=== PATIENT | male | born 1950 | race Caucasian/White ===

== ENCOUNTER 2016-06-01 18:39 | Emergency (ER) | payer OTHER ==
[~2016-06-01] VITALS: Ht 175.3 cm; Wt 104.0 kg
[2016-06-01] MEDS ORDERED: ASPIRIN EC81 MG PO (19:08)
[2016-06-01] MEDS ORDERED: ZYRTEC10 M3 PO (19:08)
[2016-06-01] MEDS ORDERED: METFORMIN500 MG PO (19:09)
[2016-06-01] MEDS ORDERED: HYDROCHLORO25 MG/TAB PO (19:09)
[2016-06-01] MEDS ORDERED: LISINOPRIL20 MG PO (19:09)
[2016-06-01] MEDS ORDERED: KLOR-CON SPRIN10 MEQ PO (19:10)
[2016-06-01] MEDS ORDERED: METOPROL TAR25 MG PO (19:10)
[2016-06-01] MEDS ORDERED: SIMVASTATIN20 MG PO (19:10)
[2016-06-01] MEDS ORDERED: CLOPIDOGREL75 MG PO (19:11)
[2016-06-01] MEDS ORDERED: AMLODIPINE2.5 MG PO (19:11)
[2016-06-01] MEDS ORDERED: LANTUS SOLOSTAR SC (19:12)
[2016-06-01] MEDS ORDERED: NIACIN SR500 M1 (19:30)
[2016-06-01 20:46] LABS: HEMATOCRIT 42.6 % (39.0-50.0); HEMOGLOBIN 13.9 g/dl (14.0-18.0); IMMATURE GRANULOCYTES 0.3 % (0.0-1.0); MEAN CELL VOLUME 83.2 fL CALC (80.0-100.0); MEAN CORPUSCULAR HGB 27.1 pG CALC (26.0-32.0); MEAN CORPUSCULAR HGB CONC 32.6 g/L CALC (32.0-36.0); NEUT# 5.54 thou/uL (1.82-7.42); RED BLOOD COUNT 5.12 mill/uL (4.70-6.10); RED CELL DISTRI WIDTH 14.3 % (11.5-15.5)
[2016-06-01 20:57] LABS: ALBUMIN 4.5 g/dL (3.2-5.0); ALKALINE PHOSPHATASE 62 u/l (38-126); ANION GAP 20 (6-22 (CALC)); BILIRUBIN, TOTAL 0.4 mg/dL (0.0-1.4); BUN 17 mg/dL (8-23); BUN/CREATININE RATIO 17 (12-20 (CALC)); CALCIUM 9.7 mg/dL (8.4-10.2); CARBON DIOXIDE 25 mmol/l (22-30); CHLORIDE 101 mmol/l (95-108); GFR > 60 ML/MIN (>=60 (CALC)); GFR FOR AFR.AMER. > 60 ML/MIN (>=60 (CALC)); GLUCOSE 120 mg/dL (82-115); SGOT/AST 36 u/l (19-48); SGPT/ALT 63 u/l (11-66); SODIUM 142 mmol/l (137-146); TOTAL PROTEIN 7.1 g/dL (6.3-8.2)
[2016-06-01 21:00] LABS: INFLUENZA A NONE DETECTED (NONE DETECT); INFLUENZA B NONE DETECTED (NONE DETECT)
[2016-06-01] MEDS ORDERED: CIPROFLOXACN500 MG PO (21:57)
[2016-06-01] MEDS ORDERED: MUCINEX600 MG PO (21:57)
[2016-06-01 22:21] VITALS: BP 144/78
== END 2016-06-01 22:33 | disposition home or self-care (01) | DRG 103 ==
LOC: ED 18:39
PROVIDERS: Emergency Medicine
DX: R51 Headache (principal); J40 Bronchitis, not specified as acute or chronic; R42 Dizziness and giddiness

== ENCOUNTER 2017-04-07 09:27 | Emergency (ER) | payer MEDICARE, OTHER ==
[~2017-04-07] VITALS: Ht 175.3 cm; Wt 104.0 kg
[~2017-04-07 09:27] MED LIST: AMLODIPINE2.5 MG PO; BAYER ASPIRIN E81 MG PO; CIPROFLOXACN500 MG PO; CLOPIDOGREL75 MG PO; HYDROCHLOROT25 MG PO; KLOR-CON SPRIN10 MEQ PO; LANTUS SOL100 UNIT/M SC; LISINOPRIL20 MG PO; METFORMIN500 MG PO; METOPROL TAR25 MG PO; MUCINEX600 MG PO; NIACIN SR500 M1; SIMVASTATIN20 MG PO; ZYRTEC10 M3 PO
[2017-04-07] MEDS ORDERED: ZYRTEC10 MG PO (10:05)
[2017-04-07] MEDS ORDERED: LISINOPRIL40 MG PO (10:06)
[2017-04-07] MEDS ORDERED: LOPRESSOR50 M1 PO (10:08)
[2017-04-07] MEDS ORDERED: K-DUR/KLOR-CON20 MEQ PO (10:10)
[2017-04-07] MEDS ORDERED: PROPAFENONE HC225 MG PO (10:11)
[2017-04-07] MEDS ORDERED: ELIQUIS5 MG PO (10:12)
[2017-04-07] MEDS ORDERED: NIASPAN500 MG PO (10:12)
[2017-04-07 10:33] LABS: INFLUENZA A NONE DETECTED (NONE DETECT); INFLUENZA B NONE DETECTED (NONE DETECT)
[2017-04-07 10:50] VITALS: BP 121/79
[2017-04-07] MEDS ORDERED: AMOXICILLIN500 MG PO (10:53)
== END 2017-04-07 10:50 | disposition home or self-care (01) ==
LOC: ED 09:27
PROVIDERS: Emergency Medicine
DX: J02.0 Streptococcal pharyngitis (principal); R05 Cough; R51 Headache; I10 Essential (primary) hypertension

== ENCOUNTER 2021-04-21 01:46 | Emergency (ER) | payer MEDICARE, OTHER ==
[~2021-04-21] VITALS: Ht 175.3 cm; Wt 91.0 kg
[~2021-04-21 01:46] MED LIST changes: -AMLODIPINE2.5 MG PO; +AMOXICILLIN500 MG PO; +ATORVASTATIN CA20 MG PO; +ELIQUIS5 MG PO; +K-DUR/KLOR-CON20 MEQ PO; +LISINOPRIL40 MG PO; +LOPRESSOR50 M1 PO; +NIASPAN500 MG PO; +NORVASC5 M1 PO; +PROPAFENONE HC225 MG PO; -SIMVASTATIN20 MG PO; +ZYRTEC10 MG PO
[2021-04-21] MEDS ORDERED: LEVEMIR FL100 UNIT/M SC (02:05)
[2021-04-21] MEDS ORDERED: FENOFIBRATE145 MG PO (02:06)
[2021-04-21] MEDS ORDERED: AMITRIPTYLINE H50 MG PO (02:07)
[2021-04-21] MEDS ORDERED: DICYCLOMINE10 MG PO (02:09)
[2021-04-21] MEDS ORDERED: PRESERVISION ARED1 PO (02:09)
[2021-04-21 02:25] LABS: URINE BLOOD DIPSTICK LARGE (NEGATIVE); URINE COLOR YELLOW; URINE GLUCOSE - DIPSTICK NEGATIVE (NEGATIVE); URINE KETONE TRACE mg/dL (NEGATIVE); URINE LEUK ESTERASE NEGATIVE (NEGATIVE); URINE PH 6.5 (4.5-8.0); URINE PROTEIN - DIPSTICK 100 mg/dL (NEG-TRACE)
[2021-04-21 02:26] LABS: HEMATOCRIT 42.7 % (39.0-50.0); HEMOGLOBIN 13.4 g/dl (14.0-18.0); IMMATURE GRANULOCYTES 0.7 % (0.0-5.0); MEAN CORPUSCULAR HGB 27.7 pG CALC (26.0-32.0); MEAN CORPUSCULAR HGB CONC 31.4 g/dL CAL (32.0-36.0); NEUT# 8.31 thou/uL (1.82-7.42); RED BLOOD COUNT 4.83 mill/uL (4.70-6.10); RED CELL DISTRI WIDTH 14.8 % (11.5-15.5)
[2021-04-21 02:27] LABS: MEAN CELL VOLUME 88.4 fL CALC (80.0-100.0)
[2021-04-21 02:27] LABS: URINE BILIRUBIN - DIPSTICK SMALL (NEGATIVE); URINE NITRITE - DIPSTICK NEGATIVE (Negative)
[2021-04-21 02:40] LABS: URINE BACTERIA FEW hpf; URINE RBC >100 RBC/hpf (0-5); URINE SQUAMOUS EPITHELIAL CELL FEW EPI/hpf (0-FEW)
[2021-04-21 02:41] LABS: ALBUMIN 4.2 g/dL (3.2-5.0); ALKALINE PHOSPHATASE 64 u/l (38-126); ANION GAP 15 (6-22 (CALC)); BILIRUBIN, TOTAL 0.4 mg/dL (0.0-1.4); BUN 23 mg/dL (8-23); BUN/CREATININE RATIO 20 (12-20 (CALC)); CARBON DIOXIDE 26 mmol/l (22-30); CHLORIDE 103 mmol/l (95-108); CREATININE 1.1 mg/dL (0.7-1.3); GFR > 60 ML/MIN (>=60 (CALC)); GFR FOR AFR.AMER. > 60 ML/MIN (>=60 (CALC)); MAGNESIUM 1.9 mg/dL (1.6-2.3); POTASSIUM 4.2 mmol/l (3.5-5.1); SGOT/AST 23 u/l (19-48); SODIUM 139 mmol/l (137-146); TOTAL PROTEIN 6.8 g/dL (6.3-8.2)
[2021-04-21] MEDS ORDERED: TRAMADOL HCL50 MG PO (03:58)
[2021-04-21] MEDS ORDERED: TORADOL PO (03:58)
[2021-04-21] MEDS ORDERED: TAMSULOSIN0.4 MG PO (03:58)
[2021-04-21 04:15] VITALS: BP 127/61
== END 2021-04-21 04:15 | disposition home or self-care (01) ==
LOC: ED 01:46
PROVIDERS: Family Medicine
DX: N13.2 Hydronephrosis with renal and ureteral calculous obstruction (principal); I10 Essential (primary) hypertension; I48.91 Unspecified atrial fibrillation; E11.9 Type 2 diabetes mellitus without complications; Z95.5 Presence of coronary angioplasty implant and graft; Z79.84 Long term (current) use of oral hypoglycemic drugs

== ENCOUNTER 2021-04-26 07:31 | Day surgery (SDC) | payer MEDICARE, OTHER ==
[~2021-04-26] VITALS: Ht 175.3 cm; Wt 91.6 kg
[~2021-04-26 07:31] MED LIST changes: +AMITRIPTYLINE H50 MG PO; +DICYCLOMINE10 MG PO; +FENOFIBRATE145 MG PO; +LEVEMIR FL100 UNIT/M SC; +PRESERVISION ARED1 PO; +TAMSULOSIN0.4 MG PO; +TORADOL PO; +TRAMADOL HCL50 MG PO
[2021-04-26 11:57] VITALS: BP 128/77
== END 2021-04-26 10:55 | disposition home or self-care (01) ==
LOC: ORM 07:31
PROVIDERS: ATTEND Urology
PROC: 0T778DZ Dilation of Left Ureter with Intraluminal Device, Via Natural or Artificial Opening Endoscopic (ICD-10-PCS; principal; 2021-04-26)
PROC: BT1F1ZZ Fluoroscopy of Left Kidney, Ureter and Bladder using Low Osmolar Contrast (ICD-10-PCS; 2021-04-26)
DX: N20.1 Calculus of ureter (principal); I48.91 Unspecified atrial fibrillation; I10 Essential (primary) hypertension; E11.9 Type 2 diabetes mellitus without complications; I25.10 Atherosclerotic heart disease of native coronary artery without angina pectoris; E78.5 Hyperlipidemia, unspecified; N40.1 Benign prostatic hyperplasia with lower urinary tract symptoms; N13.8 Other obstructive and reflux uropathy; Z95.5 Presence of coronary angioplasty implant and graft; Z79.01 Long term (current) use of anticoagulants; Z79.4 Long term (current) use of insulin; Z79.84 Long term (current) use of oral hypoglycemic drugs
CPT/HCPCS: C1769; J1956